=== PATIENT | female | born 2005 | race Caucasian/White ===

== ENCOUNTER 2024-06-23 17:43 | Emergency (ER) | payer OTHER ==
[2024-06-23] MEDS ORDERED: traMADol HCl 50 MG TAB ONE (19:23)
[2024-06-23] MEDS ORDERED: Bacitracin 1 PK ONE (19:23)
[2024-06-23] MEDS ORDERED: Ondansetron ODT 4 MG TAB ONE (19:23)
== END 2024-06-23 19:41 | disposition home or self-care (01) ==
LOC: CSHERS 17:43
DX: S61.411A Laceration without foreign body of right hand, initial encounter (principal); M25.551 Pain in right hip; V89.2XXA Person injured in unspecified motor-vehicle accident, traffic, initial encounter
CPT/HCPCS: 99283; Q0162